=== PATIENT | male | born 1985 | race Caucasian/White ===

== ENCOUNTER 2019-06-06 12:37 | Emergency (ER) | payer OTHER ==
[2019-06-06 12:41] VITALS: BP 144/91; TEMP 99; BMI 25.1
--- NOTE | 2019-06-06 12:55 | PDOC ---
History of Present Illness - General Chief Complaint: Lightheaded Stated Complaint: DIZZINESS Time Seen by Provider: 06/06/19 12:41 History Source: Patient Exam Limitations: No Limitations - History of Present Illness Initial Comments: 06/06/19 12:52 33 y/o male with mild dizziness after taking 3 Abilify each 10mg for a total of 30 mg. Did not take Ativan today. No SOB or chest pain. No fever or chills. Denies SI or HI. Looking to go to rehab. Denies chest pain or SOB. No headache or weakness. Brought in via EMS. Pt denies N/V/d/C. 06/06/19 13:03 Is this a multiple visit Asthma Patient?: No Past History - Past Medical History Allergies/Adverse Reactions: Allergies Allergy/AdvReac Type Severity Reaction Status Date / Time No Known Allergies Allergy Verified 10/25/14 09:42 Home Medications: Ambulatory Orders Aripiprazole 10 mg PO DAILY 06/06/19 COPD: No Psychiatric Problems: Yes (ANXIETY) - Psycho Social/Smoking Cessation Hx Smoking History: Unknown if ever smoked Number of Cigarettes Smoked Daily: 15 'Breaking Loose' booklet given: 10/25/14 Hx Alcohol Use: No Drug/Substance Use Hx: No Substance Use Type: None Review of Systems - Review of Systems Able to Perform ROS?: Yes Is the patient limited Faroese proficient: No Constitutional: No: Chills, Fever Respiratory: No: Cough, Shortness of Breath Cardiac (ROS): No: Chest Pain, Chest Tightness ABD/GI: No: Nausea, Vomiting Neurological: No: Headache Psychiatric: No: Anxiety All Other Systems: Reviewed and Negative *Physical Exam - Vital Signs Last Vital Signs Temp Pulse Resp BP Pulse Ox 99 F 111 H 20 144/91 97 06/06/19 12:37 06/06/19 12:37 06/06/19 12:37 06/06/19 12:37 06/06/19 12:37 - Physical Exam General Appearance: Yes: Nourished, Appropriately Dressed. No: Apparent Distress HEENT: positive: EOMI, GARY, Normal ENT Inspection, Normal Voice Neck: positive: Trachea midline, Normal Thyroid, Supple. negative: Tender, Rigid Respiratory/Chest: positive: Lungs Clear, Normal Breath Sounds. negative: Chest Tender Cardiovascular: positive: Regular Rhythm, S1, S2, Tachycardia. negative: Regular Rate, Edema, JVD, Murmur Vascular Pulses: Femoral (R): 4+, Femoral (L): 4+, Carotid (R): 4+, Carotid (L): 4+, Dorsalis-Pedis (R): 4+, Doralis-Pedis (L): 4+ Gastrointestinal/Abdominal: positive: Normal Bowel Sounds, Flat, Soft. negative: Tender, Organomegaly, Pulsatile Mass Lymphatic: negative: Adenopathy, Tenderness, Other Musculoskeletal: positive: Normal Inspection. negative: CVA Tenderness Extremity: positive: Normal Capillary Refill, Normal Inspection, Normal Range of Motion Integumentary: positive: Normal Color, Dry, Warm Neurologic: positive: broach grinder II-XII NML intact, Fully Oriented, Alert, Normal Mood/Affect, Normal Response, Motor Strength 5/ ED Treatment Course - ADDITIONAL ORDERS Additional order review: 06/06/19 13:04 Spoke to [facility], EKG shows mild tachycardia, pt has no other symptoms Supportive, denies SI or HI Will give info for Rehab Pt is in agreement with plan. Discharge - Discharge Information Problems reviewed: Yes Clinical Impression/Diagnosis: Accidental overdose Qualifiers: Encounter type: initial encounter Qualified Code(s): T50.901A - Poisoning by unspecified drugs, medicaments and biological substances, accidental (unintentional), initial encounter Condition: Fair Disposition: HOME - Admission No - Follow up/Referral Referrals: Telly Dugan [Primary Care Provider] - - Patient Discharge Instructions Patient Printed Discharge Instructions: DI for Drug Overdose in Adults Additional Instructions: Fluids, rest, Tylenol Go to rehab Call [facility] [phone] - Post Discharge Activity
[2019-06-06 13:19] VITALS: PULSE 89
--- NOTE | 2019-06-07 15:06 | EKG ---
Test Reason : Blood Pressure : / mmHG Vent. Rate : 112 BPM Atrial Rate : 112 BPM P-R Int : 134 ms QRS Dur : 076 ms QT Int : 332 ms P-R-T Axes : 051 005 055 degrees QTc Int : 453 ms SINUS TACHYCARDIA PREMATURE ATRIAL COMPLEXES POSSIBLE LEFT ATRIAL ENLARGEMENT BORDERLINE ECG NO PREVIOUS ECGS AVAILABLE Confirmed by CARMITA IBARRA, SAMMY ([id number]) on 06/07/2019 3:06:06 PM Referred By: CRISTIAN RIZZO Confirmed By:SAMMY VIZCARRA MD
== END 2019-06-06 13:20 | disposition home or self-care (01) ==
LOC: FER 12:37
DX: T42.4X1A Poisoning by benzodiazepines, accidental (unintentional), initial encounter (principal)
CPT/HCPCS: 93005; 99283-25